=== PATIENT | male | born 1990 | race Caucasian/White ===

== ENCOUNTER 2017-12-01 10:34 | Emergency (ER) | payer OTHER ==
--- NOTE | 2017-12-01 10:53 | RAD ---
2 VIEWS LEFT TIBIA AND FIBULA: Date: 12/01/17 COMPARISON: None. HISTORY: Leg caught between a horse and a pen with pain below the left knee. FINDINGS: Two views of the left tibia/fibula show no evidence of acute fracture or dislocation. Mild soft tissu e swelling is seen. No radiopaque foreign body is present. IMPRESSION: No evidence of acute osseous abnormality. POS: [facility]
== END 2017-12-01 11:12 | disposition home or self-care (01) ==
LOC: MADERS 10:34
DX: S80.12XA Contusion of left lower leg, initial encounter (principal); F17.220 Nicotine dependence, chewing tobacco, uncomplicated; W22.09XA Striking against other stationary object, initial encounter

== ENCOUNTER 2020-10-25 05:56 | Outpatient (CLI) | payer OTHER ==
[2020-10-25 06:50] LABS: ALT (SGPT) 36 U/L (8-55); AST (SGOT) 22 U/L (5-34); Albumin 4.3 g/dL (3.5-5.0); Alkaline Phosphatase 139 U/L (40-110); Anion Gap 12 mmol/L (10-20); BUN (Urea Nitrogen) 12 mg/dL (8.9-20.6); Bilirubin, Total 0.7 mg/dL (0.2-1.2); Calc. Creatinine Clearance 0 mL/min (70-130); Calcium 9.6 mg/dL (7.8-10.44); Carbon Dioxide 27 mmol/L (22-29); Cardiac Risk 7.4 (Less than 4.5); Chloride 107 mmol/L (98-107); Cholesterol 177 mg/dl (< 200 Desired); Globulin 2.8 g/dL (2.4-3.5); Glucose 106 mg/dL (70-105); HDL Cholesterol 24 mg/dL (>60 Neg Risk); LDL Cholesterol, Calculated 75 mg/dL; Potassium 4.3 mmol/L (3.5-5.1); Protein, Total 7.1 g/dL (6.0-8.3); Sodium 142 mmol/L (136-145); Triglycerides 388 mg/dL (Less than 150)
[2020-10-25 07:41] LABS: #Basophils 0.2 thou/uL (0.0-0.2); #Eosinphils 0.3 thou/uL (0.0-0.7); #Lymphocytes 2.5 thou/uL (1.20-3.40); #Monocytes 0.7 thou/uL (0.11-0.59); #Neutrophils 5.1 thou/uL (1.40-6.50); %Lymphocytes 28.9 % (21.0-51.0); %Monocytes 7.5 % (0.0-10.0); %Neutrophils 58.7 % (42.0-75.0); Hemoglobin 17.2 g/dL (14.0-18.0); Mean Corpuscular Hemoglobin 29.1 pg (27.0-31.0); Mean Platelet Volume 10.5 fL (7.4-10.4); Platelet Count 259 thou/uL (130-400); Red Blood Cell (RBC) Count 5.91 mill/uL (4.70-6.10); White Blood Cell (WBC) Count 8.7 thou/uL (4.8-10.8)
== END 2020-10-25 05:57 | disposition home or self-care (01) ==
LOC: MADLAB 05:56
PROVIDERS: ATTEND Family Medicine
DX: Z00.00 Encounter for general adult medical examination without abnormal findings (principal)
CPT/HCPCS: 36415; 80053; 80061; 84443; 85025

== ENCOUNTER 2025-04-12 14:43 | Emergency (ER) | payer OTHER, SELFPAY | END 2025-04-12 15:54 | disposition home or self-care (01) | LOC: MADERS 14:43 | DX: S06.0X9A Concussion with loss of consciousness of unspecified duration, initial encounter (principal); F17.210 Nicotine dependence, cigarettes, uncomplicated; F17.220 Nicotine dependence, chewing tobacco, uncomplicated; F17.290 Nicotine dependence, other tobacco product, uncomplicated; V80.010A Animal-rider injured by fall from or being thrown from horse in noncollision accident, initial encounter | CPT/HCPCS: 70450; 71046 ==